=== PATIENT | male | born 1955 ===

== ENCOUNTER 2020-06-09 18:42 | Emergency (ER) | payer SELFPAY ==
[~2020-06-09] VITALS: Ht 177.8 cm; Wt 79.6 kg
[2020-06-09 18:53] VITALS: Ht 177.8 cm; Wt 79.6 kg
[2020-06-09 19:49] LABS: BASOPHILS 0.2 % (0-2); EOSINOPHILS 2.2 % (0-7); HEMATOCRIT 39.3 % (42.0-54.0); HEMOGLOBIN 13.3 g/dL (13.5-17.5); IMMATURE GRANULOCYTES 0.8 % (0-5); LYMPHOCYTES 39.2 % (15-50); MCH 33.8 pg (26.0-34.0); MCHC 33.8 g/dL (31.0-37.0); MONOCYTES 7.7 % (2-11); NEUTROPHILS 49.9 % (40-80); PLATELET COUNT 189 10x3/uL (130-400); RBC 3.93 10x6/uL (4.20-6.10); RDW 11.9 % (11.5-14.5)
[2020-06-09 20:23] LABS: APTT 25.5 SECONDS (22.8-39.4)
[2020-06-09 20:24] LABS: INR 1.24 (0.85-1.17); PROTIME 15.5 SECONDS (11.6-15.0)
[2020-06-09 20:41] LABS: CALC OSMOLALITY 259 mosm/kg (275-300); CALCIUM 9.3 mg/dL (8.5-10.1); CARBON DIOXIDE 23.5 mmol/L (21.0-32.0); CHLORIDE - SERUM 96 mmol/L (98-107); CREATININE - SERUM 1.1 mg/dL (0.6-1.3); GLUCOSE 71 mg/dL (74-106); POTASSIUM - SERUM 4.2 mmol/L (3.5-5.1); SODIUM 130 mmol/L (136-145); UREA NITROGEN 14 mg/dL (7-18); eGFR NON AFRICAN AMERICAN 71 mL/min (90-120)
[2020-06-09 21:01] LABS: ALBUMIN 4.4 g/dL (3.4-5.0); ALKALINE PHOSPHATASE 71 U/L (30-120); ALT (SGPT) 56 U/L (10-68); BILIRUBIN - TOTAL 0.42 mg/dL (0.2-1.3); CKMB 1.2 U/L (0.0-3.6); CREATINE KINASE 62 UL (21-232); MAGNESIUM - SERUM 1.3 mg/dL (1.8-2.4); PROTEIN - SERUM 8.4 g/dL (6.4-8.2); THYROID STIMULATING HORMONE 1.01 uIU/mL (0.36-3.74)
[2020-06-09 21:04] LABS: TROPONIN-I < 0.017 ng/mL (0.000-0.060)
[2020-06-09 21:23] VITALS: BP 150/75
== END 2020-06-09 21:23 | disposition home or self-care (01) ==
LOC: D.ER 18:42
PROVIDERS: Family Medicine
DX: F10.129 Alcohol abuse with intoxication, unspecified (principal); R53.1 Weakness; Z86.73 Personal history of transient ischemic attack (TIA), and cerebral infarction without residual deficits; Y90.7 Blood alcohol level of 200-239 mg/100 ml